=== PATIENT | male | born 1955 | race Hispanic/Latino ===

== ENCOUNTER 2020-07-02 10:44 | Emergency (ER) | payer MEDICARE ==
[~2020-07-02] VITALS: Ht 165.1 cm; Wt 64.0 kg
[2020-07-02] MEDS ORDERED: INSULIN REGULAR, HUMAN 100 UNIT/1 ML 3ML VIAL SQ STA (11:07)
[2020-07-02] MEDS ORDERED: INSULIN REGULAR, HUMAN 100 UNIT/1 ML 3ML VIAL ONE (11:22)
[2020-07-02] MEDS ORDERED: CLONIDINE HCL 0.1 MG TAB ONE (11:22)
[2020-07-02] MEDS ORDERED: CLONIDINE HCL 0.2 MG TAB PO ONE (11:30)
[2020-07-02 12:40] VITALS: BP 151/77
== END 2020-07-02 17:09 | disposition home or self-care (01) ==
LOC: FSED 11:08
DX: E11.65 Type 2 diabetes mellitus with hyperglycemia (principal); I10 Essential (primary) hypertension; E78.00 Pure hypercholesterolemia, unspecified; M79.89 Other specified soft tissue disorders; Z91.14 Patient's other noncompliance with medication regimen
CPT/HCPCS: 36415; 82948; 99283; J1817